=== PATIENT | male | born 1955 | race Asian ===

== ENCOUNTER 2023-12-30 13:47 | Emergency (ER) | payer MEDICAID ==
[~2023-12-30] VITALS: Ht 172.7 cm; Wt 66.2 kg
[2023-12-30 13:47] VITALS: BP_SYST 131; PULSE 73; RESP 19; TEMP 97.8; O2SAT 95
[~2023-12-30 13:47] MED LIST: FEBU80TA PO; FOLI0.8T53 PO; MEGE40TA PO; METO-442 PO; ROSU10TA2 PO; VALS320T2 PO
[2023-12-30] MEDS: DIPHENHYDRAMINE INJ 50 MG/ML VIAL IVP ONE (15:06)
[2023-12-30] MEDS: methylPREDNISolone SOD SUCC/PF 62.5 MG/ML VIAL IVP ONE (15:07)
[2023-12-30] MEDS: FAMOTIDINE PF 20 MG/2 ML VIAL IVP ONE (15:07)
[2023-12-30 15:23] LABS: ALBUMIN 3.5 g/dL (3.4-4.8); CREATININE 2.61 mg/dL (0.55-1.30); POTASSIUM 4.6 mmol/L (3.5-5.1); TOTAL BILIRUBIN 0.4 mg/dL (0.0-1.0); TOTAL PROTEIN, SERUM 7.5 g/dL (6.4-8.3)
[2023-12-30 15:30] LABS: BASOPHILS % (AUTO) 0.5 % (0.0-2.0); EOSINOPHILS # (AUTO) 0.6 K/uL (0.0-0.4); EOSINOPHILS % (AUTO) 8.6 % (0.0-4.0); HEMATOCRIT 36.2 % (36-54); HEMOGLOBIN 12.8 g/dL (14.0-18.0); LYMPHOCYTES # (AUTO) 1.1 K/uL (1.0-5.5); LYMPHOCYTES % (AUTO) 15.1 % (20.5-51.5); MEAN CORPUSCULAR HEMOGLOBIN 32 pg (27-31); MEAN CORPUSCULAR HGB CONC 35 % (32-36); MEAN CORPUSCULAR VOLUME 90 fL (79.0-98.0); MONOCYTES # (AUTO) 0.8 K/uL (0.0-1.0); MONOCYTES % (AUTO) 11.2 % (1.7-9.3); NEUTROPHILS # (AUTO) 4.9 K/uL (1.8-7.7); NEUTROPHILS % (AUTO) 64.6 % (40.0-70.0); PLATELET COUNT (AUTO) 329 K/uL (130-430); RED BLOOD CELL COUNT(AUTO) 4.01 MIL/uL (4.2-6.2); RED CELL DISTRIBUTION WIDTH 14.7 % (9.0-15.0); WHITE BLOOD COUNT (AUTO) 7.5 K/uL (4.8-10.8)
[2023-12-30] MEDS ORDERED: AMOX500C2 PO (15:50)
[2023-12-30] MEDS ORDERED: FAMO-132 PO (15:50)
[2023-12-30] MEDS ORDERED: DIPH25CA83 PO (15:50)
[2023-12-30] MEDS ORDERED: PRED20TA PO (15:50)
[2023-12-30 16:22] VITALS: BP_SYST 131; PULSE 73; RESP 19; TEMP 97.8; O2SAT 95
== END 2023-12-30 16:23 | disposition home or self-care (01) ==
LOC: SED 13:47
DX: R21 Rash and other nonspecific skin eruption (principal); T36.8X5A Adverse effect of other systemic antibiotics, initial encounter; I10 Essential (primary) hypertension; Z95.1 Presence of aortocoronary bypass graft; Z79.899 Other long term (current) drug therapy; Z79.2 Long term (current) use of antibiotics; Y92.89 Other specified places as the place of occurrence of the external cause
CPT/HCPCS: 99284; 96374; 96375; 80053; 85025; 36415; J1200; J3490; J2930